=== PATIENT | female | born 2000 | race Caucasian/White ===

== ENCOUNTER 2021-12-10 19:22 | Emergency (ER) | payer SELFPAY ==
[2021-12-10 19:36] VITALS: BP 138/85; PULSE 94; RESP 18; TEMP 36.8; O2SAT 99; BMI 21.1
--- NOTE | 2021-12-10 19:54 | ED_ITS ---
HPI - Dental/Oral General: Chief complaint: Dental/Oral Stated complaint: L side of face is swollen Time Seen by Provider: 12/10/21 19:54 History of Present Illness: 21-year-old female comes in today with complaints of left lower jaw pain and swelling. Patient appears in moderate pain. Patient is managing secretions well. No acute distress is noted. Patient does report a significant carious tooth in the area of pain and swelling. Location: Tooth # (First molar left lower jaw) Onset (ago): day(s) Duration: intermittent Context: history of dental caries Associated symptoms: Reports gum swelling Treatment prior to arrival: none Review of Systems General: Reports: 10 or more systems reviewed and unremarkable except in HPI and below ENMT: Reports: dental pain Resp: Denies: dyspnea [facility] ED Female Reproductive History: Date of last menstrual period: 12/07/21 Physical Exam Const: COMMON NORMALS: alert HENMT: COMMON NORMALS: atraumatic, TM's normal bilaterally and Normal external nose present HEAD & SCALP: atraumatic FACE & SINUS: edema on the left mandible NOSE: Normal external nose present TYMPANIC MEMBRANE: TM's normal bilaterally TEETH & GINGIVA IMAGES: 1. Carious tooth with loss of dentition to the gum, surrounding erythema and swelling. THROAT: posterior oropharynx normal Neck/C-Spine: COMMON NORMALS: full ROM and no lymphadenopathy Resp: COMMON NORMALS: normal respiratory effort and clear to auscultation bilaterally AUSCULTATION: clear to auscultation bilaterally Cardio: COMMON NORMALS: regular rate and regular rhythm RATE: regular rate RHYTHM: regular rhythm Extremity: COMMON NORMALS: full ROM Neuro: SENSORIUM/ORIENTATION: Yes alert Psych: COMMON NORMALS: cooperative Skin: COMMON NORMALS: no rashes or lesions noted GENERAL SKIN EXAM: no rashes or lesions noted Course Vital Signs: Vital signs: Vital Signs Temperature 98.2 F 12/10/21 21:05 Pulse Rate 89 12/10/21 21:05 Respiratory Rate 18 12/10/21 21:05 Blood Pressure 136/82 12/10/21 21:05 Pulse Oximetry 99 12/10/21 21:05 MDM - Dental/Oral Medical Decision Making 21-year-old female comes in with dental pain. On exam patient has some swelling to the left lower jaw. On exam there is a significantly carious tooth with decay to the gumline of the first molar. Surrounding gingival swelling is noted laterally. No fluctuance is noted. Differential diagnosis includes but not limited to cellulitis, periapical abscess, retropharyngeal abscess. Patient has no significant difficulty with swallowing and appears well. We will treat patient for dental abscess with clindamycin. Patient was given some dexamethasone to assist with swelling of the face. Courage plenty of fluids and follow-up with dentist. Patient was given information regarding the [facility] that offer dental support. They reported understanding agreed to plan. Discharge Plan Discharge Patient Disposition: Home Clinical Impression: Dental abscess Condition: Stable Prescriptions: New clindamycin HCl 300 mg capsule 300 mg PO QID 7 Days Qty: 28 0RF hydrocodone-acetaminophen 5-325 mg tablet 1 tab PO Q6H PRN (Reason: pain) Qty: 7 0RF Lidocaine Viscous 2 % solution 5 ml mucous membrane Q4H PRN (Reason: pain) Qty: 100 0RF Discharge Orders: Discharge ED (Routine); Ordered 12/10/21 Ordered By: Howie Tellez Referrals: Ashlyn Tam MD [Primary Care Provider] - Discharge Diet: Usual diet Discharge Activity: Increase activity as tolerated Patient Instructions: Dental Abscess (ED), Opioid Safety Activity Restrictions/Additional Instructions: Home and rest. Use lidocaine viscus solution by applying to a piece of gauze or cotton ball and apply it to the open area of the cavity. Allow it to set in the area until numbness or pain relief has occurred. Take antibiotics as directed. Use acetaminophen and ibuprofen for pain. Use hydrocodone as needed for breakthrough pain. Drink plenty of water with medications. Follow-up with [facility] for definitive care. There are area federally qualified health clinics for dental through [facility] and [facility]. [facility] operates out of [place], and [facility] dental clinic operates in [facility]. Coding Level of Care Code ED Crisis Therapist for Chg Fwd History Problem Focused Exam Expanded Problem Focused Medical Decision Making Low Complexity Time Spent (min) 20
[2021-12-10] MEDS: dexamethasone 10 mg/mL INJ IM (20:32)
[2021-12-10] MEDS: clindamycin 150 mg Capsule 300 MG PO (20:32)
[2021-12-10] MEDS: lidocaine 2% viscous 15 mL UDC 10 ML MUCOUS MEM (20:32)
[2021-12-10] MEDS: HYDROcodone-acetaminophen 5-325 mg Tablet 1 TAB PO (20:32)
[2021-12-10 21:05] VITALS: BP 136/82; PULSE 89; RESP 18; TEMP 36.8; O2SAT 99
== END 2021-12-10 21:06 | disposition home or self-care (01) ==
PROVIDERS: Emergency Provider Nurse Practitioner Family; PCP Pediatrics Adolescent Medicine
DX: K04.7 Periapical abscess without sinus (principal)
CPT/HCPCS: 96372; 99283; J1100